=== PATIENT | female | born 1990 | race Caucasian/White ===

== ENCOUNTER 2018-03-16 14:35 | Emergency (ER) | payer SELFPAY ==
[2018-03-16] MEDS: HYDROcodone/APAP 5/325MG 1 TAB TABLET PO ×2 (15:15→15:25)
== END 2018-03-16 16:17 | disposition home or self-care (01) ==
LOC: ER 14:35
DX: S96.912A Strain of unspecified muscle and tendon at ankle and foot level, left foot, initial encounter (principal); X50.1XXA Overexertion from prolonged static or awkward postures, initial encounter; Y93.01 Activity, walking, marching and hiking; Y92.89 Other specified places as the place of occurrence of the external cause; Y99.8 Other external cause status
CPT/HCPCS: 29515; 73590; 73610; 99284; L4350